=== PATIENT | male | born 1985 | race Caucasian/White ===

== ENCOUNTER 2016-12-12 00:14 | Emergency (ER) | payer OTHER ==
[~2016-12-12] VITALS: Ht 152.4 cm; Wt 65.0 kg
[~2016-12-12 00:14] MED LIST: BUSPAR10 MG PO; BUSPAR30 MG PO; CITALOPRAM HBR20 MG PO; COGENTIN0.5 MG PO; FLUVOXAMINE MA100 MG PO; FLUVOXAMINE MAL25 MG PO; HYDROCORTISONE28 GM TP; PRAZOSIN HCL2 MG PO; PROAIR HFA8.5 GM IH; RISPERIDONE2 MG PO; SEROQUEL400 MG PO; TEARS NATURALE-15 ML BOTH EYES
[2016-12-12 02:11] VITALS: BP 138/85
== END 2016-12-12 02:14 | disposition home or self-care (01) ==
LOC: EME 00:14
DX: F32.9 Major depressive disorder, single episode, unspecified (principal); F41.9 Anxiety disorder, unspecified; J45.909 Unspecified asthma, uncomplicated; Z87.891 Personal history of nicotine dependence
CPT/HCPCS: 80053; 81003; 85027; 90837; 99281; 99284; G0480

== ENCOUNTER 2017-06-08 01:58 | Emergency (ER) | payer OTHER ==
[~2017-06-08] VITALS: Ht 152.4 cm; Wt 70.9 kg
[2017-06-08 04:30] LABS: HEMATOCRIT 37.8 % (38.0-50.0); HEMOGLOBIN 13.2 G/DL (12.5-16.6); MCH 30.1 PG (29.0-34.0); MCHC 34.9 G/DL (30.0-36.0); MCV 86.3 FL (86-99); PLATELET COUNT 199 K/uL (156-360); RBC DIS.WIDTH-CV 12.6 % (11.8-14.6); RBC DIS.WIDTH-SD 39.5 % (39-53); RED BLOOD COUNT 4.38 M/uL (4.00-5.50); WHITE BLOOD COUNT 7.7 K/uL (4.1-10.2)
[2017-06-08 04:47] LABS: CHLORIDE 105 mEq/L (99-109); POTASSIUM 3.6 mEq/L (3.7-5.4); SODIUM 140 mEq/L (136-147)
[2017-06-08 04:48] LABS: GLUCOSE 114 mg/dL (70-99)
[2017-06-08 04:52] LABS: CREATININE 0.9 mg/dL (0.6-1.3); GFR ESTIMATE (CALCULATED) > 59 mL/min/ (58.99-99999)
[2017-06-08 04:53] LABS: UREA NITROGEN (BUN) 12 mg/dL (9-23)
[2017-06-08 05:19] VITALS: BP 100/60
== END 2017-06-08 05:19 | disposition home or self-care (01) ==
LOC: EME → EDBD 01:58 → EME 01:58
PROVIDERS: Physician Assistant
DX: R53.1 Weakness (principal); R51 Headache; T43.595A Adverse effect of other antipsychotics and neuroleptics, initial encounter; Y92.009 Unspecified place in unspecified non-institutional (private) residence as the place of occurrence of the external cause; J45.909 Unspecified asthma, uncomplicated; Z87.891 Personal history of nicotine dependence
CPT/HCPCS: 80048; 85027; 99281; 99284

== ENCOUNTER 2017-08-01 17:11 | Inpatient (IN) | payer OTHER ==
[~2017-08-01] VITALS: Ht 162.6 cm; Wt 65.7 kg
[2017-08-01 18:53] LABS: HEMATOCRIT 43.7 % (38.0-50.0); MCH 29.9 PG (29.0-34.0); MCHC 34.3 G/DL (30.0-36.0); MCV 87.1 FL (86-99); RBC DIS.WIDTH-CV 12.7 % (11.8-14.6); RBC DIS.WIDTH-SD 39.7 % (39-53); RED BLOOD COUNT 5.02 M/uL (4.00-5.50); WHITE BLOOD COUNT 7.5 K/uL (4.1-10.2)
[2017-08-01 18:56] LABS: PLATELET COUNT 222 K/uL (156-360)
[2017-08-01 19:01] LABS: CHLORIDE 104 mEq/L (99-109); POTASSIUM 4.4 mEq/L (3.7-5.4); SODIUM 142 mEq/L (136-147)
[2017-08-01 19:03] LABS: GLUCOSE 111 mg/dL (70-99)
[2017-08-01 19:06] LABS: SERUM ETHYL ALCOHOL < 10 mg/dL
[2017-08-01 19:07] LABS: CREATININE 0.8 mg/dL (0.6-1.3); GFR ESTIMATE (CALCULATED) > 59 mL/min/ (58.99-99999)
[2017-08-01 19:08] LABS: UREA NITROGEN (BUN) 10 mg/dL (9-23)
[2017-08-01 21:50] VITALS: BP 122/82
[2017-08-01 21:52] VITALS: BP 122/82
[2017-08-01] MEDS ORDERED: MINIPRESS2 MG PO (22:34)
[2017-08-01] MEDS ORDERED: TRILEPTAL150 MG PO ×2 (22:35→22:36)
[2017-08-01] MEDS ORDERED: BUSPAR15 MG PO (22:37)
[2017-08-02 07:30] VITALS: BP 100/52
[2017-08-02 15:29] VITALS: BP 118/63
[2017-08-03 07:27] VITALS: BP 105/56
[2017-08-03 16:09] VITALS: BP 129/71
[2017-08-04 07:32] VITALS: BP 98/53
[2017-08-04 15:37] VITALS: BP 116/65
[2017-08-05 08:47] VITALS: BP 119/56
[2017-08-05 15:32] VITALS: BP 105/54
[2017-08-06 08:10] VITALS: BP 99/56
[2017-08-06] MEDS ORDERED: QUETIAPINE FUM300 MG PO (09:38)
[2017-08-06] MEDS ORDERED: CITALOPRAM HBR20 MG PO (09:38)
[2017-08-06] MEDS ORDERED: BUSPAR15 MG PO (09:47)
== END 2017-08-06 11:02 | disposition home or self-care (01) | DRG 880 ==
LOC: EME 17:11 → EDOF 20:59 → 1WEST 20:59 → ENRESERV 21:23 → 1WEST 21:42
PROVIDERS: Emergency Medicine Emergency Medical Services
DX: F41.8 Other specified anxiety disorders (principal); J45.909 Unspecified asthma, uncomplicated; Z87.891 Personal history of nicotine dependence; R45.851 Suicidal ideations; R45.850 Homicidal ideations; R44.0 Auditory hallucinations; F63.9 Impulse disorder, unspecified; F19.11 Other psychoactive substance abuse, in remission; F60.9 Personality disorder, unspecified; Z81.8 Family history of other mental and behavioral disorders
CPT/HCPCS: 80048; 80306 90; 85027; 90839; 97150 GO; 97165 GO; 99202; 99281; 99285; G0480; Q0177

== ENCOUNTER 2017-11-25 23:32 | Inpatient (IN) | payer OTHER ==
[~2017-11-25] VITALS: Ht 152.4 cm; Wt 67.3 kg
[~2017-11-25 23:32] MED LIST changes: +BUSPAR15 MG PO; +MINIPRESS2 MG PO; +QUETIAPINE FUM300 MG PO; +TRILEPTAL150 MG PO
[2017-11-26 00:36] LABS: BASOPHIL (%) 0.4 % (0-1); EOSINOPHIL (%) 1.9 % (0-5); EOSINOPHIL COUNT 0.2 K/uL (0-0.3); HEMATOCRIT 41.7 % (38.0-50.0); HEMOGLOBIN 14.5 G/DL (12.5-16.6); IMMATURE GRANULOCYTE (%) 0.9 % (0.0-0.7); LYMPHOCYTE (%) 26.8 % (15-42); LYMPHOCYTE COUNT 2.9 K/uL (1.0-2.8); MCH 29.5 PG (29.0-34.0); MCHC 34.8 G/DL (30.0-36.0); MCV 84.9 FL (86-99); MONOCYTE (%) 9.7 % (3-12); MONOCYTE COUNT 1.1 K/uL (0-0.8); NEUTROPHIL (%) 60.3 % (45-76); NEUTROPHIL COUNT 6.5 K/uL (1.8-6.4); PLATELET COUNT 202 K/uL (156-360); RBC DIS.WIDTH-CV 12.1 % (11.8-14.6); RBC DIS.WIDTH-SD 36.9 % (39-53); RED BLOOD COUNT 4.91 M/uL (4.00-5.50); WHITE BLOOD COUNT 10.8 K/uL (4.1-10.2)
[2017-11-26 00:50] LABS: CHLORIDE 107 mEq/L (99-109); POTASSIUM 3.8 mEq/L (3.7-5.4); SODIUM 142 mEq/L (136-147)
[2017-11-26 00:51] LABS: GLUCOSE 94 mg/dL (70-99)
[2017-11-26 00:54] LABS: SERUM ETHYL ALCOHOL < 10 mg/dL
[2017-11-26 00:55] LABS: CREATININE 0.9 mg/dL (0.6-1.3); GFR ESTIMATE (CALCULATED) > 59 mL/min/ (58.99-99999)
[2017-11-26 00:56] LABS: UREA NITROGEN (BUN) 15 mg/dL (9-23)
[2017-11-26 01:02] LABS: AMPHETAMINE NEGATIVE (500 ng/mL); BARBITURATES NEGATIVE (200 ng/mL); BENZODIAZEPINES NEGATIVE (150 ng/mL); BUPRENORPHINE NEGATIVE (10 ng/mL); COCAINE NEGATIVE (150 ng/mL); METHADONE NEGATIVE (200 ng/mL); METHAMPHETAMINE NEGATIVE (500 ng/mL); OPIATES (MORPHINE) NEGATIVE (100 ng/mL); OXYCODONE NEGATIVE (100 ng/mL); PHENCYCLIDINE NEGATIVE (25 ng/mL); PROPOXYPHENE NEGATIVE (300 ng/mL); THC CANNABINOIDS NEGATIVE (50 ng/mL); TRICYCLIC ANTIDEPRESSANTS PRESUMPTIVE POSITIVE (300 ng/mL)
[2017-11-26 07:37] VITALS: BP 110/59
[2017-11-26 15:55] VITALS: BP 120/67
[2017-11-27 07:43] VITALS: BP 106/59
[2017-11-27 16:14] VITALS: BP 113/60
[2017-11-28 08:01] VITALS: BP 112/58
[2017-11-28] MEDS ORDERED: PRAZOSIN HCL1 MG PO (10:44)
[2017-11-28] MEDS ORDERED: CITALOPRAM HBR10 MG PO (10:44)
== END 2017-11-28 13:26 | disposition home or self-care (01) | DRG 880 ==
LOC: EME 23:32 → 1WEST 11-26 02:43 → EDOF 11-26 02:43 → 1WEST 11-26 02:43 → ENRESERV 11-26 05:25 → 1WEST 11-26 05:25
PROVIDERS: Emergency Medicine
DX: F41.8 Other specified anxiety disorders (principal); R45.850 Homicidal ideations; F60.9 Personality disorder, unspecified; F31.9 Bipolar disorder, unspecified; F63.9 Impulse disorder, unspecified; F19.21 Other psychoactive substance dependence, in remission; F10.10 Alcohol abuse, uncomplicated; J45.909 Unspecified asthma, uncomplicated; Z91.5 Personal history of self-harm; Z87.891 Personal history of nicotine dependence; Z81.8 Family history of other mental and behavioral disorders
CPT/HCPCS: 80048; 85025; 90839; 94640; 94799; 97150 GO; 97165 GO; 99281; 99285; G0480